=== PATIENT | female | born 1955 | race Two or more races ===

== ENCOUNTER 2024-08-15 11:03 | Emergency (ER) | payer OTHER ==
[~2024-08-15] VITALS: Ht 162.6 cm; Wt 81.6 kg
[2024-08-15] MEDS ORDERED: LOSARTAN POTASS50 MG (11:19)
[2024-08-15] MEDS ORDERED: TRAMADOL HCL 50 MG TABLET PO STA (12:20)
== END 2024-08-15 13:34 | disposition home or self-care (01) ==
LOC: ER 11:04
DX: G89.11 Acute pain due to trauma (principal); M25.512 Pain in left shoulder